=== PATIENT | female | born 1970 | race American Indian/Alaskan Native ===

== ENCOUNTER 2018-06-05 20:13 | Emergency (ER) | payer SELFPAY ==
[2018-06-05 20:59] VITALS: BP 143/94
--- NOTE | 2018-06-06 05:28 | Emergency Department Report ---
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 , pt denies sob no calf tenderness no numbness or tingling patient denies fall injury or trauma, this is a chronic condition , Onset/Timin -: month(s) Location: lower extremity (bilat lower extrems) Radiation: non-radiation Severity scale (0 -10): 4 Quality: aching Consistency: intermittent Worsens with: movement, other (prolonged standing and weight bearing ) Associated Symptoms: denies: confusion, chest pain, cough, diaphoresis, fever/ chills, headaches, loss of appetite, malaise, nausea/vomiting, rash, seizure, weakness - Related Data Home Medications Medication Instructions Recorded Confirmed Last Taken Baclofen [Lioresal] 5 mg PO TID PRN 05/02/16 05/02/16 1 Day Ago ~05/01/16 Naproxen [Naproxen TAB] 250 mg PO Q6H PRN 05/02/16 05/02/16 1 Day Ago ~05/01/16 Previous Rx's Medication Instructions Recorded Last Taken Type HYDROcodone/APAP 5-325 [[place] 1 each PO Q6HR PRN #20 tablet 05/02/16 Unknown Rx 5/325] Hydrochlorothiazide [HCTZ] 25 mg PO QDAY #30 tablet 05/02/16 Unknown Rx Ibuprofen [Motrin 800 MG tab] 800 mg PO Q8HR PRN #30 tablet 05/02/16 Unknown Rx Acetaminophen [Tylenol Extra 1,000 mg PO QID PRN #60 tablet 06/06/18 Unknown Rx Strength] Furosemide [Lasix TAB] 40 mg PO QDAY #5 tablet 06/06/18 Unknown Rx Allergies Allergy/AdvReac Type Severity Reaction Status Date / Time No Known Allergies Allergy Verified 05/02/16 11:03 ED Review of Systems ROS: Stated complaint: RT ANKLE/HEAL AND LT LEG PAIN Other details as noted in HPI Constitutional: denies: chills, fever Eyes: denies: eye pain, eye discharge, vision change ENT: denies: ear pain, throat pain Respiratory: denies: cough, shortness of breath, wheezing Cardiovascular: denies: orthopnea, edema, syncope, paroxysmal nocturnal dyspnea Endocrine: no symptoms reported Gastrointestinal: denies: abdominal pain, nausea, diarrhea Genitourinary: denies: urgency, dysuria, discharge Musculoskeletal: back pain Skin: denies: rash, lesions, change in color, change in hair/nails Neurological: denies: numbness Psychiatric: denies: anxiety, depression Hematological/Lymphatic: denies: easy bleeding, easy bruising ED Past Medical Hx - Past Medical History Previous Medical History?: No - Surgical History Past Surgical History?: Yes Additional Surgical History: . carpal tunnel. heart cath. right toe correction. tubes tied - Social History Smoking Status: Never Smoker Substance Use Type: Alcohol - Medications Home Medications: Home Medications Medication Instructions Recorded Confirmed Last Taken Type Baclofen [Lioresal] 5 mg PO TID PRN 05/02/16 05/02/16 1 Day Ago History ~05/01/16 HYDROcodone/APAP 5-325 [[place] 1 each PO Q6HR PRN #20 tablet 05/02/16 Unknown Rx 5/325] Hydrochlorothiazide [HCTZ] 25 mg PO QDAY #30 tablet 05/02/16 Unknown Rx Ibuprofen [Motrin 800 MG tab] 800 mg PO Q8HR PRN #30 tablet 05/02/16 Unknown Rx Naproxen [Naproxen TAB] 250 mg PO Q6H PRN 05/02/16 05/02/16 1 Day Ago History ~05/01/16 Acetaminophen [Tylenol Extra 1,000 mg PO QID PRN #60 tablet 06/06/18 Unknown Rx Strength] Furosemide [Lasix TAB] 40 mg PO QDAY #5 tablet 06/06/18 Unknown Rx ED Physical Exam - General Limitations: No Limitations General appearance: alert, in no apparent distress - Head Head exam: Present: atraumatic, normocephalic - Eye Eye exam: Present: normal appearance - ENT ENT exam: Present: mucous membranes moist - Neck Neck exam: Present: normal inspection, full ROM. Absent: tenderness, meningismus, lymphadenopathy, thyromegaly - Respiratory Respiratory exam: Present: normal lung sounds bilaterally. Absent: respiratory distress, rales, rhonchi - Cardiovascular Cardiovascular Exam: Present: regular rate, normal rhythm. Absent: systolic murmur, diastolic murmur, rubs, gallop - GI/Abdominal GI/Abdominal exam: Present: soft, normal bowel sounds. Absent: distended, tenderness, guarding, organomegaly, mass, bruit, pulsatile mass, hernia - Rectal Rectal exam: Present: deferred - Extremities Exam Extremities exam: Present: normal inspection - Expanded Lower Extremity Exam Right Lower Leg exam: Present: swelling. Absent: tenderness, abrasion, laceration, ecchymosis, deformity, crepidus, dislocation, erythema, palpable cord, Pina's sign Neuro vascular tendon exam: Absent: pulse deficit, abnormal cap refill, motor deficit, sensory deficit, tendon deficit, extremity cold to touch, pallor, abnormal 2-point discrimination, decreased fine/light touch, foot drop, peroneal nerve deficit, significant pain with passive ROM of distal joint Gait: Positive: observed and normal Left Lower Leg exam: Present: normal inspection, full ROM, tenderness, swelling. Absent: abrasion Ankle exam: Present: swelling. Absent: abrasion, laceration, ecchymosis - Back Exam Back exam: Present: normal inspection - Neurological Exam Neurological exam: Present: alert, oriented X3, CN II-XII intact, normal gait, reflexes normal. Absent: motor sensory deficit - Psychiatric Psychiatric exam: Present: normal affect, normal mood - Skin Skin exam: Present: warm, dry, intact, normal color. Absent: rash ED Course Vital Signs 06/05/18 20:52 Temperature 98.1 F Pulse Rate 92 H Respiratory 18 Rate Blood Pressure 143/94 O2 Sat by Pulse 97 Oximetry ED Medical Decision Making - Medical Decision Making this is PVD will treat with lasix 40 mg po daily x 5 days follow up [facility]d wall will pat pt will follow up with [facility] in 2-3 days pt verbalized agrement and understanding of same. Critical care attestation.: If time is entered above; I have spent that time in minutes in the direct care of this critically ill patient, excluding procedure time. ED Disposition Clinical Impression: PVD (peripheral vascular disease) Disposition: TO HOME OR SELFCARE Is pt being admited?: No Does the pt Need Aspirin: No Condition: Good Instructions: Peripheral Vascular Disorders (ED) Prescriptions: Acetaminophen [Tylenol Extra Strength] 1,000 mg PO QID PRN #60 tablet PRN Reason: Pain , Severe (7-10) Furosemide [Lasix TAB] 40 mg PO QDAY #5 tablet Referrals: PRIMARY CARE, [Primary Care Provider] - 3-5 Days Forms: Work/School Release Form(ED) Time of Disposition: 05:40
== END 2018-06-06 05:45 | disposition home or self-care (01) ==
LOC: ED 20:13
DX: I73.9 Peripheral vascular disease, unspecified (principal)
CPT/HCPCS: 99282

== ENCOUNTER 2019-11-06 10:55 | Emergency (ER) | payer SELFPAY ==
--- NOTE | 2019-11-06 11:44 | XRay Report ---
CHEST 2 VIEWS INDICATION: cough. COMPARISON: None. FINDINGS: Support devices: None. Heart: Within normal limits. Lungs/Pleura: Mild infiltrate along the inferior lateral aspect of the right hilum. No significant pleural effusion. IMPRESSION: Right basilar pneumonia. Signer Name: Clay Bailey MD Signed: 11/06/2019 11:40 AM Workstation Name: [id number]
--- NOTE | 2019-11-06 14:35 | Emergency Department Report ---
ED General Adult HPI - General Chief complaint: Upper Respiratory Infection Stated complaint: COUGH/VOMITING Source: patient Mode of arrival: Ambulatory Limitations: No Limitations - History of Present Illness Initial comments: 48yo BF states that she had the Flu a week ago and she began to have a severe productive cough w/blood in her sputum along with a fever and light headedness. Her symptoms became worse 3 days ago after a cruise. She states that she used a nebulizer at home with mild relief. -: Gradual Location: chest Radiation: non-radiation Severity scale (0 -10): 8 Quality: aching Consistency: intermittent Worsens with: medication (nebulizer treatment) Associated Symptoms: malaise Treatments Prior to Arrival: other - Related Data Home Medications Medication Instructions Recorded Confirmed Last Taken Baclofen [Lioresal] 5 mg PO TID PRN 05/02/16 05/02/16 1 Day Ago ~05/01/16 Naproxen [Naproxen TAB] 250 mg PO Q6H PRN 05/02/16 05/02/16 1 Day Ago ~05/01/16 Previous Rx's Medication Instructions Recorded Last Taken Type HYDROcodone/APAP 5-325 [[place] 1 each PO Q6HR PRN #20 tablet 05/02/16 Unknown Rx 5/325] Ibuprofen [Motrin 800 MG tab] 800 mg PO Q8HR PRN #30 tablet 05/02/16 Unknown Rx hydroCHLOROthiazide [HCTZ] 25 mg PO QDAY #30 tablet 05/02/16 Unknown Rx Acetaminophen [Tylenol Extra 1,000 mg PO QID PRN #60 tablet 06/06/18 Unknown Rx Strength] Furosemide [Lasix TAB] 40 mg PO QDAY #5 tablet 06/06/18 Unknown Rx Brompheniramine/Pseudoephed/Dm 5 ml PO Q4H #118 syrup 11/06/19 Unknown Rx [Bromfed Dm Cough Syrup] DOXYCYCLINE Hyclate [Vibramycin 100 mg PO Q12HR 10 Days #20 capsule 11/06/19 Unknown Rx CAP] Allergies Allergy/AdvReac Type Severity Reaction Status Date / Time No Known Allergies Allergy Verified 05/02/16 11:03 ED Review of Systems ROS: Stated complaint: COUGH/VOMITING Other details as noted in HPI Comment: All other systems reviewed and negative Constitutional: see HPI Respiratory: see HPI ED Past Medical Hx - Past Medical History Previous Medical History?: Yes - Surgical History Additional Surgical History: . carpal tunnel. heart cath. right toe correction. tubes tied - Social History Smoking Status: Never Smoker Substance Use Type: Alcohol - Medications Home Medications: Home Medications Medication Instructions Recorded Confirmed Last Taken Type Baclofen [Lioresal] 5 mg PO TID PRN 05/02/16 05/02/16 1 Day Ago History ~05/01/16 HYDROcodone/APAP 5-325 [[place] 1 each PO Q6HR PRN #20 tablet 05/02/16 Unknown Rx 5/325] Ibuprofen [Motrin 800 MG tab] 800 mg PO Q8HR PRN #30 tablet 05/02/16 Unknown Rx Naproxen [Naproxen TAB] 250 mg PO Q6H PRN 05/02/16 05/02/16 1 Day Ago History ~05/01/16 hydroCHLOROthiazide [HCTZ] 25 mg PO QDAY #30 tablet 05/02/16 Unknown Rx Acetaminophen [Tylenol Extra 1,000 mg PO QID PRN #60 tablet 06/06/18 Unknown Rx Strength] Furosemide [Lasix TAB] 40 mg PO QDAY #5 tablet 06/06/18 Unknown Rx Brompheniramine/Pseudoephed/Dm 5 ml PO Q4H #118 syrup 11/06/19 Unknown Rx [Bromfed Dm Cough Syrup] DOXYCYCLINE Hyclate [Vibramycin 100 mg PO Q12HR 10 Days #20 capsule 11/06/19 Unknown Rx CAP] ED Physical Exam - General Limitations: No Limitations General appearance: alert, in no apparent distress - Head Head exam: Present: atraumatic, normocephalic - Eye Eye exam: Present: normal appearance, PERRL, EOMI - ENT ENT exam: Present: normal exam. Absent: normal orophraynx (mild erythema) - Respiratory Respiratory exam: Present: wheezes (ROGER), rales (diffusely). Absent: normal lung sounds bilaterally - Cardiovascular Cardiovascular Exam: Present: regular rate, normal rhythm, normal heart sounds - GI/Abdominal GI/Abdominal exam: Present: soft, normal bowel sounds. Absent: distended, tenderness - Rectal Rectal exam: Present: deferred - Extremities Exam Extremities exam: Present: normal inspection, full ROM. Absent: tenderness - Back Exam Back exam: Present: normal inspection, full ROM. Absent: tenderness - Neurological Exam Neurological exam: Present: alert, altered, oriented X3 - Skin Skin exam: Present: warm, dry, intact ED Course Vital Signs 11/06/19 11:01 Temperature 99.3 F Pulse Rate 98 H Respiratory 22 Rate Blood Pressure 127/74 O2 Sat by Pulse 99 Oximetry ED Medical Decision Making - Radiology Data [facility] [address] [place] [address] XRay Report Signed Patient: ALISON ALANIS MR# : [id number] : 1970 Acct:[id number] Age/Sex: 48 / F ADM Date: 11/06/19 Loc: ED Attending Dr: Ordering Physician: JOSE BADILLO MD Date of Service: 11/06/19 Procedure(s): XR chest routine 2V Accession Number(s): [id number] cc: JOSE BADILLO MD Fluoro Time In Minutes: CHEST 2 VIEWS INDICATION: cough. COMPARISON: None. FINDINGS: Support devices: None. Heart: Within normal limits. Lungs/Pleura: Mild infiltrate along the inferior lateral aspect of the right hilum. No significant pleural effusion. IMPRESSION: Right basilar pneumonia. Signer Name: Clay Bailey MD Signed: 11/06/2019 11:40 AM Workstation Name: [id number] Transcribed By: ES Dictated By: Clay Bailey MD Electronically Authenticated By: Clay Bailey MD Signed Date/Time: 11/06/19 1140 DD/ 1139 TD/TT: - Medical Decision Making 48yo BF states that she had the Flu a week ago and she began to have a severe productive cough w/blood in her sputum along with a fever and light headedness. Her symptoms became worse 3 days ago after a cruise. Pt's xray report revealed abnormal findings indicating pneumonia. She states that she used a nebulizer at home with mild relief. Pt was given a Duoneb treatment in the ER and sent home with an inhaler, antibiotics and Bromfed cough syrup. Pt was told to not drink, drive or lift heavy equipment while using cough syrup medication. She was instructed to f/u with her PCP in 2-3 days and see ER as needed. Critical care attestation.: If time is entered above; I have spent that time in minutes in the direct care of this critically ill patient, excluding procedure time. ED Disposition Clinical Impression: CAP (community acquired pneumonia) Disposition: DC-01 TO HOME OR SELFCARE Is pt being admited?: No Does the pt Need Aspirin: No Condition: Stable Instructions: Bacterial Pneumonia (ED), Community-acquired Pneumonia (ED) Additional Instructions: Pt was given a Duoneb treatment in the ER and sent home with an inhaler, antibiotics and Bromfed cough syrup. Pt was told to not drink, drive or lift heavy equipment while using cough syrup medication. She was instructed to f/u with her PCP in 2-3 days and see ER as needed. Prescriptions: Brompheniramine/Pseudoephed/Dm [Bromfed Dm Cough Syrup] 5 ml PO Q4H #118 syrup DOXYCYCLINE Hyclate [Vibramycin CAP] 100 mg PO Q12HR 10 Days #20 capsule Referrals: PRIMARY CARE, [Primary Care Provider] - 3-5 [address] [facility] [Outside] - 3-5 Days Time of Disposition: 15:17
[2019-11-06] MEDS ORDERED: IPRATROPIUM/ALBUTEROL SULFATE 3 ML AMPUL.NEB IH STA (15:15)
[2019-11-06 15:55] VITALS: BP 125/65
[2019-11-06] MEDS ORDERED: IPRATROPIUM/ALBUTEROL SULFATE 3 ML AMPUL.NEB IH SCH (20:00)
== END 2019-11-06 15:53 | disposition home or self-care (01) ==
LOC: ED 10:55
DX: J18.9 Pneumonia, unspecified organism (principal); Z98.890 Other specified postprocedural states
CPT/HCPCS: 71046; 94640; 94644